=== PATIENT | female | born 1935 | race Caucasian/White ===

== ENCOUNTER → 2023-05-11 15:23 | Outpatient (REF) | payer MEDICARE, SELFPAY | LOC: RAD 15:23 | PROVIDERS: ATTENDING PHYSICIAN Physician Assistant Medical | DX: Z20.828 Contact with and (suspected) exposure to other viral communicable diseases (principal) | CPT/HCPCS: 71046 ==

== ENCOUNTER 2023-05-31 20:03 | Emergency (ER) | payer MEDICARE, SELFPAY ==
[2023-05-31] VITALS (7 sets, daily range): BP systolic 126–197; BP diastolic 40–118
[2023-05-31 20:24] LABS: % Basophils 0.4 % (0-2); % Eosinophils 1.7 % (0-6); % Immature Granulocytes 0.8 % (0-0.5); % Lymphocytes 36.7 % (20.5-51.1); % Monocytes 9.9 % (1.7-9.3); % Neutrophils 50.5 % (42.2-75.2); Absolute Eosinophils 0.1 10^3/uL (0-0.7); Absolute Lymphocytes 1.8 10^3/uL (1.2-3.4); Absolute Monocytes 0.5 10^3/uL (0.1-0.6); Absolute Neutrophils 2.4 10^3/uL (1.4-6.5); Hematocrit 44.6 % (37.0-47.0); Mean Corp Hgb Conc. 33.6 g/dL (33.0-37.0); Mean Corpuscular Hgb 29.8 pg (27.0-31.0); Mean Corpuscular Volume 88.7 fL (81.0-99.0); Mean Platelet Volume 10.4 fL (7.4-10.4); Nucleated Red Blood Cells % 0 %; Platelet Count 219 10^3/uL (130-400); Red Blood Cell Count 5.03 10^6/uL (4.20-5.40); Red Cell Dist. Width 14.2 % (11.5-14.5); White Blood Cell Count 4.8 10^3/uL (4.8-10.8)
[2023-05-31 20:40] LABS: ALT (SGPT) 61 U/L (0-35); AST (SGOT) 41 U/L (14-36); Albumin 3.8 g/dl (3.5-5.0); Alkaline Phosphatase 87 U/L (38-126); Blood Urea Nitrogen 51 mg/dl (7-17); Calcium 11.3 mg/dl (8.4-10.2); Carbon Dioxide 31 mmol/L (22-30); Chloride 98 mmol/L (98-107); Glucose 138 mg/dl (70-99); Potassium 4.4 mmol/L (3.5-5.1); Sodium 137 mmol/L (135-145); Total Bilirubin 0.6 mg/dl (0.2-1.3); Total Protein 6.8 g/dl (6.3-8.2); eGFR 54.19
[2023-05-31 20:54] LABS: COVID-19 Antigen Negative (Negative)
[2023-05-31 20:57] LABS: NT-proBNP 56.9 pg/ml; Troponin I 0.012 ng/ml
[2023-05-31] MEDS: NSS 500 IV (21:40)
--- NOTE | 2023-05-31 23:54 | ED.GENMED ---
History of Present Illness
General
Chief Complaint: Breathing Problem
Source: family (son)
Time Seen by Provider: 05/31/23 20:23
Travel History
Have you had any contact with someone who has COVID-19?: No
Do you have any symptoms of coronavirus? Fever > 100 degrees, chills, cough, shortness of breath, sore throat, loss of taste or smell, muscle aches, or headache?: No
History of Present Illness
History of Present Illness:
87-year-old female brought to the emergency by ambulance from home for copious secretions that she seems to be coughing or choking on. Patient resides at home with her family who care for her. She has significant dementia. She does not speak but
is able to indicate when she has to use the restroom. She is fed by family but when they put food in her mouth she will chew and swallow it. Patient has had similar episodes of significant secretion at times but was much worse tonight. Patient
unable to history.
Past History
Past History
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
Social History
Tobacco: Non-smoker
Alcohol: None
Personal:
Living: with family
Phy Exam
Physical Exam
Physical Exam:
General: Awake, nonverbal, coughing
Vitals: unremarkable
Head: Atraumatic
Eyes: Pupils equal, EOMI
Throat: Airway intact, no exudates, copious secretions
Neck: Trachea midline
Lungs: Transmitted upper airway sounds
Heart: Regular rate, no murmurs
Abd: Soft, Nontender, No pulsatile mass
Neuro: Grossly nonfocal
Skin: Warm, dry, no rash
Extremities: pulses equal b/l, no edema
Scores
Heart Failure Risk
Heart Failure Risk Score: Not Applicable
Course
Orders/Labs/Results
Orders:
Orders
05/31/23 20:07
Electrocardiogram (*1) Urgent
Reason for Study: Other
Other Reason for Exam: Respiratory Distress
Cardiac Monitoring- Treatment ONCE
EKG- Treatment ONCE
IV Insert/Care/Rem.- Treatment PRN
O2 Therapy [RESP] Urgent
Titrate/Wean O2 to maintain O2 sat greater than (%): 93
Special Instructions: TO MAINTAIN CONTINUOUS O2 SATS >/= 93%
Pulse Ox/cont/shift [RESP] Urgent
Quantity: 1
Special Instructions: continuous pulse ox
05/31/23 20:17
Complete Blood Count/With Diff Urgent
Comprehensive Metabolic Panel Urgent
NT-proBNP Urgent
Troponin I Urgent
05/31/23 20:25
CR Chest Portable - 1 View Urgent
Comment:
Reason For Exam: hypoxia, cough
Reason Study Needs to be Portable: Patient Unstable
05/31/23 20:29
COVID-19 Antigen Urgent
Source: Nasal Swab
Influenza A+B Rapid Molecular Urgent
RALPH Source: Nasal Swab
Specimen Description:
05/31/23 21:02
Blood Culture Q30M
RALPH Source: Blood/Venous
Specimen Description:
Blood Culture Q30M
RALPH Source: Blood/Venous
Specimen Description:
05/31/23 21:25
0.9% Sodium Chloride 500 ml [Nss] 500 ml IV BOLUS
05/31/23 23:57
Case Management Consult ONCE
Case Management Consult: Hospice
Hospice: Evaluation and treat
Abnormal Lab Results
05/31/23
20:17
Immature Gran % 0.8 H %
(0-0.5)
Monocytes % 9.9 H %
(1.7-9.3)
Carbon Dioxide 31 H mmol/L
(22-30)
BUN 51 H mg/dl
(7-17)
Glucose 138 H mg/dl
(70-99)
Calcium 11.3 H mg/dl
(8.4-10.2)
AST 41 H U/L
(14-36)
ALT 61 H U/L
(0-35)
05/31/23 20:17
05/31/23 20:17
Vital Signs
Initial and Last Documented VS:
Initial Vital Signs
Pulse Resp BP Pulse Ox
88 23 130/118 91
05/31/23 20:12 05/31/23 20:12 05/31/23 20:12 05/31/23 20:12
Last Documented Vital Signs
Pulse Resp BP Pulse Ox
87 24 173/100 89
06/01/23 00:00 06/01/23 00:00 06/01/23 00:00 06/01/23 00:00
MDM/Problems Addressed
Differential Diagnosis Includes:
CHF, pneumonia bronchorrhea
MDM/Problems Addressed:
Patient suctioned aggressively ultimately able to control secretions here with aggressive suctioning. Patient initially requiring supplemental oxygen but we were able to wean this down to room air ultimately. Discussed long-term goals with the
patient's son. They do not want patient to be on a ventilator. She is a DNR. He does not want her hospitalized. Seems like family would be interested in hospice. They have not discussed this with anyone before and are not familiar with it but
given their goals of care this would seem appropriate. Family very much wants to take the patient home with him tonight. Given we have been able to take her off the supplemental oxygen and there is no clear infiltrate on her chest x-ray this seems
reasonable. Case management consult placed to help them potentially arrange hospice at home.
*Radiology
Radiology exam reviewed: preliminary read by ED provider (No acute abnormality noted on my evaluation)
*Pulse Oximetry
Patient hypoxic: no
*Critical Care Note
Total Time (30-74mins, 75-104mins- exclusive of procedures): Not Applicable
ED Attending Note
-
Portions of this chart may have been created with voice recognition software.� Occasional wrong word or��sound alike� substitutions may have occurred due to the inherent limitations of voice recognition software.
Discharge Plan
Departure
Patient Disposition: Home (Routine Discharge)
Date of Disposition: 05/31/23
Time of Disposition: 23:54
Patient with high blood pressure during this ER visit?: Yes
Condition: Good
Discharge Problem:
Bronchorrhea
Prescriptions:
No Action
insulin glargine [Lantus Solostar U-100 Insulin] 300 UNITS/3 ML insulin pen
10 units SC DAILY
Patient Comments:
received 12 units
vitamin K2 100 MCG capsule
100 mcg PO DAILY
cholecalciferol (vitamin D3) 125 MCG tablet,disintegrating
125 mcg PO DAILY
methylene blue 65 mg Tablet
65 mg PO DAILY
cod liver oil Capsule
1 cap PO DAILY
vitamin E 268 mg (400 unit) Capsule
268 mg PO DAILY PRN (Reason: supplement)
acetylcysteine [NAC] 600 mg Capsule
600 mg PO DAILY
Referrals:
Ingris Armas PA-C [Family Provider] -
Activity Restrictions/Additional Instructions:
I have placed a referral to our Case Management department asking them to contact you to discuss hospice care for you mom. You can also discuss this with your primary care doctor.
Interventions
Interventions:
*Risk Screen - Suicide Last Done: 05/31/23 21:52
*General Assessment Last Done: 05/31/23 20:21
*Neglect/Abuse Screening Last Done: 05/31/23 21:52
ED- Fall Risk Assessment Last Done: 05/31/23 20:22
*ED COVID-19 Vaccine History Last Done: 05/31/23 20:12
ED- Cardiac Assessment Last Done: 05/31/23 23:00
ED- Pulmonary Assessment Last Done: 05/31/23 23:00
[2023-06-01] VITALS: BP 173/100
[2023-06-01 01:00] VITALS: BP 125/69
[2023-06-01 01:58] VITALS: BP 113/89
[2023-06-01 02:00] VITALS: BP 118/86
[2023-06-01 04:05] VITALS: BP 144/74
--- NOTE | 2023-06-01 09:23 | CM ---
CM received consult for hospice. Patient is current home with family. CM spoke with patient's son who stated that he would prefer home hospice and is agreeable to Hospice. CM sent referral via [facility] and updated manager primary liaison.
== END 2023-06-01 05:00 | disposition home or self-care (01) ==
LOC: EMR 20:03
PROVIDERS: Emergency Medicine; EMERGENCY PHYSICIAN Emergency Medicine; FAMILY PHYSICIAN Physician Assistant Medical
DX: J98.09 Other diseases of bronchus, not elsewhere classified (principal); R03.0 Elevated blood-pressure reading, without diagnosis of hypertension; F03.90 Unspecified dementia, unspecified severity, without behavioral disturbance, psychotic disturbance, mood disturbance, and anxiety
CPT/HCPCS: 99285; 96360; 96361 ×2; 71045; 80053; 83880; 84484; 85025; 87040; 87502; 87811; 93005